=== PATIENT | female | born 1995 | race Caucasian/White ===

== ENCOUNTER 2019-02-23 13:21 | Emergency (ER) | payer BC ==
[2019-02-23 13:29] VITALS: BP 130/90
--- NOTE | 2019-02-23 13:47 | UC ---
Skin Complaint HPI - HPI Summary HPI Summary: healthy 23yo with recurrent drainage from a cut on the left lower lip, resulting from picking at the dry skin on her lip. - History of Current Complaint Chief Complaint: UCSkin Time Seen by Provider: 02/23/19 13:38 Stated Complaint: SKIN COMPLAINT Hx Obtained From: Patient Onset/Duration: Gradual Onset, Lasting Days - 4 Skin Exposure Onset/Duration: Days Ago - 4 Timing: Constant Onset Severity: Mild Pain Intensity: 1 Location: Discrete, Other - left lower lip Character: Swelling, Pain Aggravating Factor(s): Nothing Alleviating Factor(s): Nothing Associated Signs & Symptoms: Positive: Negative - Allergy/Home Medications Allergies/Adverse Reactions: Allergies Allergy/AdvReac Type Severity Reaction Status Date / Time No Known Allergies Allergy Verified 02/23/19 13:29 Home Medications: Home Medications Norethindrone AC-Eth Estradiol [Norethindrone Acetate/Eth 1-20 mg-Mcg] 1 tab PO DAILY 02/23/19 [History Confirmed 02/23/19] PMH/Surg Hx/FS Hx/Imm Hx Previously Healthy: Yes - Surgical History Surgical History: None - Family History Known Family History: Positive: Non-Contributory - Social History Occupation: Employed Full-time Lives: Alone Alcohol Use: Weekly Substance Use Type: None Smoking Status (MU): Current Some Day Smoker Review of Systems All Other Systems Reviewed And Are Negative: Yes Constitutional: Positive: Negative Skin: Positive: Other - sore on lower lip Eyes: Positive: Negative ENT: Positive: Negative Is Patient Immunocompromised?: No Physical Exam Triage Information Reviewed: Yes Appearance: Well-Appearing, No Pain Distress Vital Signs: Initial Vital Signs Temp 98.6 F 02/23/19 13:26 Pulse 83 02/23/19 13:26 Resp 18 02/23/19 13:26 BP 130/90 02/23/19 13:26 Pulse Ox 99 02/23/19 13:26 ENT: Positive: Pharynx normal Dental Exam: Normal Respiratory: Positive: Lungs clear, Normal breath sounds Cardiovascular: Positive: RRR, No Murmur Musculoskeletal Exam: Normal Neurological Exam: Normal Psychological Exam: Normal Skin Exam: Other - left lower lip with mild swelling, approx 6 mm area of erythema with scant drainage. Very mild indruaration. Course/Dx - Course Course Of Treatment: mupirocin ointment to lower lip until healed, hot compresses prn. - Differential Diagnoses - Skin Complaint Differential Diagnoses: Cellulitis - Diagnoses Provider Diagnosis: Cellulitis of skin of lip Discharge ED - Sign-Out/Discharge Documenting (check all that apply): Patient Departure All imaging exams completed and their final reports reviewed: No Studies - Discharge Plan Condition: Good Disposition: HOME Prescriptions: Mupirocin 2% OINT* [Bactroban 2 % Oint*] 1 applic TOPICAL TID #1 tube Patient Education Materials: Cellulitis (ED) Referrals: No Primary Care Phys,NOPCP [Primary Care Provider] - Additional Instructions: Apply mupirocine ointment to the outer left lip three times daily, anticipating that the infection will take 2 to 3 days to respond. The ointment should help to keep your lip from splitting. Warm compress the area for comfort. - Billing Disposition and Condition Condition: GOOD Disposition: Home
== END 2019-02-23 14:00 | disposition home or self-care (01) ==
LOC: UCEAST 13:21
DX: K13.0 Diseases of lips (principal); F17.200 Nicotine dependence, unspecified, uncomplicated
CPT/HCPCS: 99212; G0463